=== PATIENT | female | born 1980 | race Caucasian/White ===

== ENCOUNTER 2016-11-22 09:41 | Emergency (ER) | payer OTHER ==
[~2016-11-22] VITALS: Ht 167.6 cm; Wt 96.5 kg
[2016-11-22 09:42] VITALS: Ht 167.6 cm; Wt 96.5 kg
[2016-11-22] MEDS ORDERED: POLY10DR19 LEFT EYE (10:01)
[2016-11-22] MEDS ORDERED: CEPH-443 PO (10:01)
[2016-11-22] MEDS ORDERED: SULF1TAB31 PO (10:01)
[2016-11-22] MEDS ORDERED: IBUP-1542 PO (10:01)
--- NOTE | 2016-11-22 10:13 | ERD ---
ER Documentation Chief Complaint Date/Time DATE: 11/22/16 TIME: 10:04 Chief Complaint left eye swelling and discharge this morning, cold symptoms x 3 days HPI 36-year-old female presents with left-sided eye swelling with discharge that started last night, she also reports flulike symptoms over the last 3 days. Patient states that she has had a dry cough, nausea, vomiting and she reports fever for the past 1 day that resolved. Last night she states that she developed some yellow discharge in the left eye, and that she woke up with swelling above the left eyelid region. She denies any visual changes, photophobia. She denies any blurry vision, loss of visual [place] of vision visual field deficits. No fevers continuing. She does not wear any glasses or corrective lenses. ROS All systems reviewed and are negative except as per history of present illness. Medications Home Meds Active Scripts Ibuprofen* (Motrin*) 600 Mg Tab, 600 MG PO Q6, #30 TAB Prov:JLILIAN DAY PA-C 11/22/16 Polymyxin B Sulfate-TMP* (Polymyxin B-TMP Eye Drops*) 10 Ml Drops, 1 DROP LEFT EYE QID for 7 Days, EA Prov:JILLIAN DAY PA-C 11/22/16 Sulfamethoxazole/Trimethoprim* (Bactrim Ds* Tablet) 1 Each Tablet, 1 TAB PO BID , #14 TAB Prov:JILLIAN DAY PA-C 11/22/16 Cephalexin* (Keflex*) 500 Mg Capsule, 500 MG PO QID for 7 Days, CAP Prov:JILLIAN DAY PA-C 11/22/16 Allergies Allergies: Coded Allergies: No Known Allergy (Unverified , 11/22/16) PMhx/Soc Medical and Surgical Hx: pt denies Medical Hx, pt denies Surgical Hx Hx Alcohol Use: No Hx Substance Use: No Hx Tobacco Use: No Smoking Status: Never smoker Physical Exam Vitals Vital Signs Date Time Temp Pulse Resp B/P Pulse Ox O2 Delivery O2 Flow Rate FiO2 11/22/16 09:42 98.9 90 18 139/71 98 Physical Exam General: Well-developed, well-nourished. The patient appears in no acute distress. HEENT: Head is normocephalic, atraumatic. No scleral icterus. Pupils are equal , round, and reactive. Left upper eyelid has swelling, there is some discharge , mild injection. Eyes are Ting, extraocular movements intact any without any difficulty, no photophobia noted on examination. Oral mucous membranes are moist. No pharyngeal erythema. Neck: Supple. Nontender. Lungs: Clear to auscultation. Normal air movement. Heart: Regular rate and rhythm. S1 and S2 are normal. No murmurs, gallops, or rubs. Abdomen: Soft, nontender, nondistended. Bowel sounds are normoactive. Extremities: No clubbing or cyanosis. Normal pulses. Moving extremities x 4. No weakness. Neurologic: Alert and oriented 3. No focal deficits. Skin: Normal turgor. No rash or lesions. Procedures/MDM 36-year-old female presents with a history of what appears to be a viral syndrome, she developed conjunctivitis symptoms and is swelling above the left eyelid indicates early periorbital cellulitis. Examination shows localized swelling to the upper eyelid, there is no evidence of orbital cellulitis, corneal ulceration, herpetic ophthalmicus, globe rupture. Based on her examination, patient can safely be managed on an outpatient basis. She will be given antibiotics, as well as drops, and she was advised to recheck in 1-2 days. Departure Diagnosis: Primary Impression: Periorbital cellulitis of left eye Additional Impression: Viral syndrome Condition: Good Patient Instructions: Makenna-Orbital Cellulitis Additional Instructions: Call your primary care doctor TOMORROW for an appointment during the next 1-2 days.See the doctor sooner or return here if your condition worsens before your appointment time. JILLIAN DAY PA-C November 22, 2016 10:13
== END 2016-11-22 10:25 | disposition home or self-care (01) ==
LOC: FTE 09:41
DX: H05.012 Cellulitis of left orbit (principal); B34.9 Viral infection, unspecified
CPT/HCPCS: 99284